=== PATIENT | female | born 2000 ===

== ENCOUNTER 2021-10-25 04:53 | Inpatient (IN) | payer OTHER ==
[2021-10-25 05:52] LABS: Bilirubin,Urine NEG (Negative); Blood,Urine LG (Negative); Color,Urine Yellow (Yellow); Urobilinogen,Urine < 2.0 mg/dL (<2.0)
[2021-10-25 05:54] LABS: Bacteria,Urine 1+ /HPF (Negative); Mucus,Urine FEW /HPF
--- NOTE | 2021-10-25 06:55 | Ultrasound Report ---
ULTRASOUND OBSTETRIC INDICATION / CLINICAL INFORMATION: well being. Clinical Gestational Age (GA) in weeks, days: 39, 3 TECHNIQUE: Transabdominal. COMPARISON: None available. FINDINGS: Single intrauterine . Biparietal Diameter = 9.6 cm = 39, 1 weeks, days Head Circumference = 34.9 cm = 40, 4 weeks, days Abdominal Circumference = 34.1 cm = 38, 0 weeks, days Femur Length = 7.8 cm = 39, 6 weeks, days Average Ultrasound Age (AUA) = 39, 3 weeks, days Heart Rate: 121 beats per minute. Estimated Weight in grams (if calculated): 3624 Estimated Weight Growth Percentile (if calculated): 60 Position: cephalic. Amniotic Fluid Volume: decreased Amniotic Fluid Index (SHANA) in cm (if calculated): 5.1. IMPRESSION: 1. Single, living intrauterine with estimated sonographic age of 39, 3 weeks, days. 2. Oligohydramnios Signer Name: Alok Lou DO Signed: 10/25/2021 6:50 AM Workstation Name: [id number]
[2021-10-25] MEDS ORDERED: OXYTOCIN DRIP 30 UNITS/500 ML BAG IV SCH (07:30)
[2021-10-25] MEDS ORDERED: CARBOPROST TROMETHAMINE 250 MCG/1 ML INJ IM PRN (07:30)
[2021-10-25] MEDS ORDERED: METHYLERGONOVINE MALEATE 0.2 MG/ML VIAL IM PRN (07:30)
[2021-10-25] MEDS ORDERED: fentaNYL 100 MCG/2 ML INJ IV PRN (08:00)
[2021-10-25] MEDS ORDERED: ACETAMINOPHEN 325 MG TAB PO PRN (08:00)
[2021-10-25] MEDS ORDERED: miSOPROStol 25 MCG TAB PO SCH (08:00)
[2021-10-25] MEDS ORDERED: BUTORPHANOL 2 MG/1 ML INJ IV PRN (08:00)
[2021-10-25] MEDS ORDERED: ePHEDrine SULFATE 50 MG/1 ML INJ IV PRN ×2 (08:00→10:32)
[2021-10-25] MEDS ORDERED: TERBUTALINE 1 MG/1 ML INJ SUB-Q PRN (08:00)
[2021-10-25] MEDS: LACTATED RINGERS 1,000 ML IV SCH ×3 (08:05→14:23)
[2021-10-25] MEDS ORDERED: PENICILLIN G POTASSIUM 5 MIL.UNITS in SODIUM CHLORIDE 0.9% 50 ML IV ONE (08:30)
[2021-10-25 09:04] LABS: Hematocrit 38.3 % (30.3-42.9); Hemoglobin 12.7 gm/dl (10.1-14.3); Mean Corpuscular HGB Conc 33 % (30-34); Mean Corpuscular Volume 90 fl (79-97); Platelet Count 199 K/mm3 (140-440); Red Blood Count 4.28 M/mm3 (3.65-5.03); Red Cell Distribution Width 14.8 % (13.2-15.2)
[2021-10-25] MEDS ORDERED: fentaNYL-BUPIV 2 MCG/ML-0.125% 200 MCG/100 ML BAG EPIDURAL ONE (09:19)
--- NOTE | 2021-10-25 09:48 | History and Physical Report ---
History of Present Illness Date of examination: 10/25/21 Date of admission: 10/25/21 04:54 Chief complaint: Labor History of present illness: Presents to labor and delivery in active labor. She is a patient from [facility]. GBS positive. Past History Past Medical History: no pertinent history Past Surgical History: no surgical history Family/Genetic History: cancer (mother - breast) Social history: no significant social history - Obstetrical History Expected Date of Delivery: 10/29/21 Actual Gestation: 39 Week(s) 3 Day(s) : 1 Para: 0 Number of Living Children: 0 Medications and Allergies Allergies Allergy/AdvReac Type Severity Reaction Status Date / Time No Known Allergies Allergy Unverified 10/25/21 05:21 Active Meds: Active Medications Acetaminophen (Acetaminophen 325 Mg Tab) 650 mg PO Q4H PRN PRN Reason: Pain, Mild (1-3) Butorphanol Tartrate (Butorphanol 2 Mg/1 Ml Inj) 1 mg IV Q2H PRN PRN Reason: Pain, Moderate(4-6) LABOR PAIN Carboprost Tromethamine (Carboprost Tromethamine 250 Mcg/1 Ml Inj) 250 mcg IM ONCE PRN PRN Reason: Uterine Bleeding Ephedrine Sulfate (Ephedrine Sulfate 50 Mg/1 Ml Inj) 10 mg IV Q2M PRN PRN Reason: Hypotension Fentanyl (Fentanyl 100 Mcg/2 Ml Inj) 100 mcg IV Q2H PRN PRN Reason: Pain,Severe (7-10) LABOR PAIN Lactated Ringer's (Lactated Ringers) 1,000 mls @ 125 mls/hr IV DIRECT ANASTACIA Last Admin: 10/25/21 09:24 Dose: 125 mls/hr Oxytocin/Sodium Chloride (Pitocin/Ns 30 Unit/500ml) 30 units in 500 mls @ 40 mls/hr IV TITR ANASTACIA; Protocol Penicillin G Potassium 2.5 mil (.units/ Sodium Chloride) 50 mls @ 100 mls/hr IV Q4H ANASTACIA; Protocol Methylergonovine Maleate (Methylergonovine Maleate 0.2 Mg/Ml Vial) 0.2 mg IM ONCE PRN PRN Reason: Uterine Bleeding Misoprostol (Misoprostol 25 Mcg Tab) 25 mcg PO Q4H ANASTACIA Stop: 10/25/21 20:01 Terbutaline Sulfate (Terbutaline 1 Mg/1 Ml Inj) 0.25 mg SUB-Q ONCE PRN PRN Reason: Hyperstimulation/Hypertonicity Review of Systems All systems: negative - Vital Signs Vital signs: Vital Signs Pulse BP Pulse Ox 134 H 130/85 96 10/25/21 05:18 10/25/21 05:18 10/25/21 05:18 Temp Pulse Resp BP Pulse Ox 98.6 F 97 H 123/74 99 10/25/21 05:21 10/25/21 09:40 10/25/21 08:50 10/25/21 09:40 - Physical Exam Breasts: Positive: deferred Cardiovascular: Regular rate Lungs: Positive: Clear to auscultation Abdomen: Positive: soft Vagina: Positive: normal moisture Uterus: Positive: enlarged Extremities: Positive: normal Deep Tendon Reflex Grade: Normal +2 - Obstetrical FHR: category 1 Uterine Contraction Monitor Mode: External Cervical Dilatation: 7 Cervical Effacement Percentage: 80 station: -1 Uterine Contraction Frequency (min): q 3-4 min Uterine Contraction Pattern: Regular Uterine Contraction Intensity: Moderate Results Result Diagrams: 10/25/21 08:00 Abnormal lab results 10/25/21 Range/Units 05:11 Urine WBC (Auto) 18.0 H (0.0-6.0) /HPF U Epithel Cells (Auto) 20.0 H (0-13.0) /HPF All other labs normal. Assessment and Plan A: Active labor at term P: Expect Epidural
[2021-10-25] MEDS ORDERED: NALOXONE 0.4 MG/1 ML INJ IV PRN (10:32)
--- NOTE | 2021-10-25 10:39 | Anesthesia Consultation ---
Anesthesia Consult and Med Hx Date of service: 10/25/21 - Airway Anesthetic Teeth Evaluation: Good ROM Head & Neck: Adequate Mental/Hyoid Distance: Adequate Mallampati Class: Class II Intubation Access Assessment: Probably Good - Pulmonary Exam CTA: Yes - Cardiac Exam Cardiac Exam: RRR - Pre-Operative Health Status ASA Pre-Surgery Classification: ASA2 Proposed Anesthetic Plan: Epidural - Pulmonary Hx Smoking: No Hx Asthma: No - Cardiovascular System Hx Hypertension: No - Central Nervous System Hx Seizures: No Hx Psychiatric Problems: No - Endocrine Hx Renal Disease: No Hx Hypothyroidism: No Hx Hyperthyroidism: No - Hematic Hx Anemia: No Hx Sickle Cell Disease: No - Other Systems Hx Alcohol Use: No Hx Substance Use: No Hx Obesity: Yes
--- NOTE | 2021-10-25 10:42 | Progress Note ---
Labor Epidural - Labor Epidural Start Time: 10:10 Stop Time: 10:24 Performed by:: NOMAN ROJAS Procedure: Patient is requesting epidural for labor pain. H&P and labs reviewed. Procedure explained, questions answered, consent obtained. Patient placed in sitting position with monitors applied. Timeout performed immediately before start of procedure. Prep/drape in usual sterile fashion. Skin localized 5 mL 1% lidocaine at L[3]-L[4] interspace. 17-gauge Touhy epidural needle advanced to MILAGROS with saline X 2 attempts at [8] cm. No blood/CSF noted via epidural needle. Epidural catheter advanced to [12] cm. Negative aspiration for blood and CSF via catheter, negative response to test dose 3 ml 1.5% lidocaine w/ Epi. Sterile dressing applied followed by tape reinforcement. Patient tolerated procedure well. No immediate complications noted.
[2021-10-25] MEDS ORDERED: fentaNYL-BUPIV 2 MCG/ML-0.125% 200 MCG/100 ML BAG EPIDURAL SCH (11:00)
[2021-10-25] MEDS ORDERED: PENICILLIN G POTASSIUM 2.5 MIL.UNITS in SODIUM CHLORIDE 0.9% 50 ML IV SCH (12:30)
[2021-10-25] MEDS ORDERED: OXYTOCIN DRIP 30,000 MILLIUNITS/500 ML BAG IV ONE (13:02)
--- NOTE | 2021-10-25 13:24 | Event Note ---
Date: 10/25/21 S: Feeling good, epidural working O: VE /-1, CAT I Tracing, irregular contractions A: Active labor P: Pitocin augmentation Expect
--- NOTE | 2021-10-25 17:00 | Event Note ---
Date: 10/25/21 S: Having pain with contractions O: VE C/90/+1, CAT I tracing, pit on 4 mu, decreased to 2 mu A: Active labor P: Expect
--- NOTE | 2021-10-25 20:07 | Procedure Note ---
OB Delivery Note - Delivery Date of Delivery: 10/25/21 Surgeon: CHRIS HARRIS Estimated blood loss: 100cc - Vaginal Delivery presentation: vertex Delivery position: OA Intrapartum events: meconium (terminal) Delivery augmentation: rupture of membranes, pitocin Delivery monitor: external FHT, external uterine Route of delivery: Delivery placenta: spontaneous Episiotomy: none Delivery laceration: vaginal side wall (and vaginal floor ) Delivery repair: vicryl Anesthesia: epidural Delivery comments: of a viable male on October 25 @ 1939 Over first degree vaginal floor and left labial laceration. Repaired with 2-0 vicryl. Placenta delivered 3VCI. QBL 100. 8/9. - A at 1 minute: 8 at 5 minutes: 9 Infant Gender: Male (8# 3oz)
[2021-10-25] MEDS ORDERED: ONDANSETRON 4 MG/2 ML INJ IV PRN (20:13)
[2021-10-25] MEDS ORDERED: oxyCODONE /ACETAMINOPHEN 5-325MG TAB PO PRN (20:13)
[2021-10-25] MEDS ORDERED: diphenhydrAMINE 25 MG CAP PO PRN (20:13)
[2021-10-25] MEDS ORDERED: WITCH HAZEL/ GLYCERIN PAD TP PRN (20:13)
[2021-10-25] MEDS ORDERED: LANOLIN/ZINC/DIMETHICONE (LANSINOH) 7 GM TP PRN (20:13)
[2021-10-25] MEDS ORDERED: PROMETHAZINE 25 MG TAB PO PRN (20:13)
[2021-10-25] MEDS: IBUPROFEN 800 MG TAB PO SCH (23:51)
[2021-10-26] MEDS: IBUPROFEN 800 MG TAB PO SCH ×4 (06:20→21:00)
--- NOTE | 2021-10-26 12:55 | Progress Note ---
Assessment and Plan A: PPD # 1- stable P: Plan discharge for am Discharge instructions given Subjective - Subjective Date of service: 10/26/21 Principal diagnosis: PPD # 1 -stable Interval history: Presents to labor and delivery in active labor. She is a patient from [facility]. GBS positive. Patient reports: appetite normal : doing well Objective - Vital Signs Latest vital signs: Vital Signs Temp Pulse Resp BP BP Pulse Ox Pulse Ox 10/26/21 08:44 98 10/26/21 08:00 97.9 F 82 20 113/72 96 10/26/21 06:20 18 10/26/21 05:18 97.9 F 80 20 96/56 98 10/26/21 00:51 18 10/25/21 23:51 18 10/25/21 22:51 98.1 F 107 H 20 110/71 98 100 10/25/21 21:45 86 99 10/25/21 21:40 75 98 10/25/21 21:35 67 98 10/25/21 21:30 80 98 10/25/21 21:25 72 98 10/25/21 21:20 75 98 10/25/21 21:15 73 99 10/25/21 21:10 60 99 10/25/21 21:05 68 98 10/25/21 21:00 67 99 10/25/21 20:58 60 104/58 10/25/21 20:55 65 99 10/25/21 20:50 60 99 10/25/21 20:45 57 L 100 10/25/21 20:40 61 99 10/25/21 20:35 60 99 10/25/21 20:30 59 L 100 10/25/21 20:29 97.7 F 58 L 18 115/67 100 10/25/21 20:28 56 L 115/67 10/25/21 20:25 57 L 99 10/25/21 20:20 58 L 99 10/25/21 20:15 62 99 10/25/21 20:10 66 100 10/25/21 20:05 78 99 10/25/21 20:00 78 98 10/25/21 19:55 79 98 10/25/21 19:50 76 98 10/25/21 19:45 82 98 10/25/21 19:40 90 98 10/25/21 19:35 88 98 10/25/21 19:30 92 H 98 10/25/21 19:26 90 81 L 10/25/21 19:25 115 H 98 10/25/21 19:20 139 H 97 10/25/21 19:15 59 L 99 10/25/21 19:10 62 99 10/25/21 19:05 59 L 99 10/25/21 19:00 60 99 10/25/21 18:59 99 10/25/21 18:57 60 132/61 10/25/21 18:55 84 99 10/25/21 18:50 56 L 98 10/25/21 18:45 59 L 98 10/25/21 18:43 57 L 110/62 10/25/21 18:40 56 L 98 10/25/21 18:35 64 99 10/25/21 18:30 60 99 10/25/21 18:26 57 L 122/58 10/25/21 18:25 56 L 99 10/25/21 18:20 57 L 99 10/25/21 18:15 56 L 98 10/25/21 18:12 52 L 140/62 10/25/21 18:10 61 99 10/25/21 18:05 57 L 98 10/25/21 18:00 57 L 99 10/25/21 17:55 62 99 10/25/21 17:50 61 98 10/25/21 17:45 64 99 10/25/21 17:40 60 99 10/25/21 17:35 78 99 10/25/21 17:30 65 98 10/25/21 17:26 66 126/65 10/25/21 17:25 68 100 10/25/21 17:20 67 99 10/25/21 17:15 69 100 10/25/21 17:13 67 120/64 10/25/21 17:10 67 100 10/25/21 17:05 76 100 10/25/21 17:02 98.5 F 10/25/21 17:00 82 100 10/25/21 16:56 68 110/59 10/25/21 16:55 74 99 10/25/21 16:50 94 H 99 10/25/21 16:45 99 H 99 10/25/21 16:42 121 H 140/61 10/25/21 16:40 114 H 99 10/25/21 16:35 94 H 99 10/25/21 16:30 130 H 98 10/25/21 16:25 101 H 100 10/25/21 16:20 92 H 99 10/25/21 16:15 115 H 100 10/25/21 16:13 77 131/61 10/25/21 16:10 87 99 10/25/21 16:05 67 100 10/25/21 16:00 74 98 10/25/21 15:57 67 122/80 10/25/21 15:55 76 98 10/25/21 15:50 68 100 10/25/21 15:45 72 99 10/25/21 15:41 64 131/60 10/25/21 15:40 65 99 10/25/21 15:35 63 99 10/25/21 15:30 62 99 10/25/21 15:26 61 121/78 10/25/21 15:25 57 L 98 10/25/21 15:20 64 99 10/25/21 15:15 56 L 98 10/25/21 15:11 65 128/83 10/25/21 15:10 57 L 99 10/25/21 15:05 66 98 10/25/21 15:00 64 98 10/25/21 14:57 64 128/81 10/25/21 14:55 71 98 10/25/21 14:50 64 98 10/25/21 14:45 69 98 10/25/21 14:41 70 131/99 10/25/21 14:40 71 100 10/25/21 14:35 70 98 10/25/21 14:30 75 99 10/25/21 14:26 98.3 F 68 18 118/74 118/74 99 10/25/21 14:25 62 99 10/25/21 14:20 64 99 10/25/21 14:15 69 99 10/25/21 14:11 81 115/64 10/25/21 14:10 63 99 10/25/21 14:05 65 98 10/25/21 14:00 82 99 10/25/21 13:56 63 102/53 10/25/21 13:55 69 100 10/25/21 13:50 72 99 10/25/21 13:45 87 99 10/25/21 13:42 69 111/58 10/25/21 13:40 96 H 99 07/01/22 13:35 74 99 10/25/21 13:30 66 99 10/25/21 13:27 83 101/49 10/25/21 13:25 77 99 10/25/21 13:20 87 99 10/25/21 13:15 73 99 10/25/21 13:10 98.6 F 69 99 10/25/21 13:05 73 99 10/25/21 13:00 79 99 10/25/21 12:57 88 126/83 10/25/21 12:55 78 99 Intake and Output 10/25/21 10/26/21 10/26/21 22:59 06:59 14:59 Intake Total 12.634 960 320 Output Total 700 600 Balance -687.366 360 320 Intake: IV 12.634 PITOCin/NS 30 UNIT/500ML 12.634 30,000 milliunits In 500 ml @ 1 MILLIUNITS/MIN 1 mls/hr IV DIRECT ONE Rx#:[id number] Oral 360 320 Intake, Free Water 600 Output: Urine 700 600 Indwelling Catheter 700 Void 600 Other: Total, Intake Amount 360 320 Total, Output Amount 700 300 # Voids Void 1 1 Estimated Blood Loss 100 - Exam Breasts: Present: deferred Cardiovascular: Present: Regular rate Lungs: Present: Clear to auscultation Abdomen: Present: soft Vulva: both: normal Uterus: Present: fundal height below umbilicus Extremities: Present: normal Deep Tendon Reflex Grade: Normal +2
--- NOTE | 2021-10-26 12:57 | Discharge Summary ---
Providers - Providers Date of Admission: 10/25/21 04:54 Date of discharge: 10/27/21 Attending physician: FAY GRAYSON Primary care physician: FAY GRAYSON Hospitalization Reason for admission: active labor Delivery: Episiotomy: none Laceration: vaginal side wall, other (left labial) complications: none Discharge diagnosis: IUP at term delivered [place] baby: male Condition at discharge: Good Disposition: 01 HOME / SELF CARE / HOMELESS Plan - Provider Discharge Summary Activity: routine, no sex for 6 weeks, no strenuous exercise Diet: routine Instructions: routine Additional instructions: [] Smoking cessation referral if applicable(refer to patient education folder for contact #) [] Refer to [facility]'s [facility] Booklet Call your doctor immediately for: * Fever > 100.5 * Heavy vaginal bleeding ( >1 pad per hour) * Severe persistent headache * Shortness of breath * Reddened, hot, painful area to leg or breast * Drainage or odor from incision. * Keep incision clean and dry at all times and follow doctor's instructions regarding bathing/showering - Follow up plan Follow up: FAY GRAYSON MD [Primary Care Provider] - 6 Weeks
[2021-10-26 12:58] LABS: Hematocrit 33.6 % (30.3-42.9); Hemoglobin 11.1 gm/dl (10.1-14.3)
--- NOTE | 2021-10-26 19:33 | Post Anesthesia Evaluation ---
- Post Anesthesia Evaluation Patient Participated: Yes Airway Patent: Yes Stable Respiratory Function: Yes Nausea/Vomiting: No Temp > 96.8F: Yes Pain Manageable: Yes Adequeate Hydration: Yes Anesthesia Complications: No Block Receding Appropriately: Yes Patient on Ventilator: No
[2021-10-27] MEDS: IBUPROFEN 800 MG TAB PO SCH ×2 (03:00→09:34)
[2021-10-27] MEDS ORDERED: TETANUS,DIPH,PERTUSS(ACELL) VACCINE 0.5 ML SYRINGE IM ONE (06:00)
[2021-10-27 12:25] VITALS: BP 122/77
== END 2021-10-27 12:20 | disposition home or self-care (01) | DRG 775 ==
LOC: TRG 04:53 → OBSVTOIN 04:54 → APU 04:54 → TRG 06:52 → LD 07:49 → OB 22:35
PROVIDERS: ADMIT Obstetrics & Gynecology; ATTEND Obstetrics & Gynecology
PROC: 10E0XZZ Delivery of Products of Conception, External Approach (ICD-10-PCS; principal; 2021-10-25)
PROC: 3E0R3BZ Introduction of Anesthetic Agent into Spinal Canal, Percutaneous Approach (ICD-10-PCS; 2021-10-25)
PROC: 00HU33Z Insertion of Infusion Device into Spinal Canal, Percutaneous Approach (ICD-10-PCS; 2021-10-25)
PROC: 0HQ9XZZ Repair Perineum Skin, External Approach (ICD-10-PCS; 2021-10-25)
PROC: 3E0234Z Introduction of Serum, Toxoid and Vaccine into Muscle, Percutaneous Approach (ICD-10-PCS; 2021-10-27)
DX: O77.0 Labor and delivery complicated by meconium in amniotic fluid (principal); O99.824 Streptococcus B carrier state complicating childbirth; O70.0 First degree perineal laceration during delivery; Z20.822 Contact with and (suspected) exposure to COVID-19; Z37.0 Single live birth; Z23 Encounter for immunization; Z3A.39 39 weeks gestation of pregnancy; Z80.3 Family history of malignant neoplasm of breast
CPT/HCPCS: 36415; 76816; 81001; 85014; 85018; 85027; 86592; 86850; 86900; 86901; 87086; 90471; 90715; G0378; J3490; J2540; J2590; J7120; U0003